=== PATIENT | male | born 1990 | race American Indian/Alaskan Native ===

== ENCOUNTER 2020-04-15 02:10 | Emergency (ER) | payer OTHER ==
[2020-04-15 02:17] VITALS: BP 127/66
[2020-04-15] MEDS ORDERED: IBUPROFEN 800 MG TAB PO ONE (02:19)
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
== END 2020-04-15 04:14 | disposition home or self-care (01) ==
LOC: ED 02:10
DX: S13.4XXA Sprain of ligaments of cervical spine, initial encounter (principal); S39.012A Strain of muscle, fascia and tendon of lower back, initial encounter; Z79.899 Other long term (current) drug therapy; Z91.013 Allergy to seafood; V49.49XA Driver injured in collision with other motor vehicles in traffic accident, initial encounter; Y93.89 Activity, other specified; Y92.488 Other paved roadways as the place of occurrence of the external cause; Y99.8 Other external cause status
CPT/HCPCS: 72040; 72100; 99283